=== PATIENT | female | born 1990 | race Caucasian/White ===

== ENCOUNTER 2016-09-25 13:46 | Emergency (ER) | payer OTHER ==
[~2016-09-25] VITALS: Ht 157.5 cm; Wt 122.5 kg
[2016-09-25 13:58] VITALS: BP 130/76
[2016-09-25 14:44] LABS: BASOPHILS # (AUTO) 0.7 K/uL (0.00-0.22); EOSINOPHILS # (AUTO) 0.4 K/uL (0-0.4); EOSINOPHILS % (AUTO) 2.9 % (0.0-4.0); HEMATOCRIT 42.6 % (36-48); HEMOGLOBIN 14.4 g/dL (12.0-16.0); LYMPHOCYTES # (AUTO) 2.3 K/uL (2.5-16.5); LYMPHOCYTES % (AUTO) 16.8 % (20.5-51.1); MEAN CORPUSCULAR HEMOGLOBIN 30 pg (27-31); MEAN CORPUSCULAR HGB CONC 34 g/dL (33-37); MEAN CORPUSCULAR VOLUME 89 fL (80-94); MONOCYTES # (AUTO) 0.4 K/uL (0.8-1.0); MONOCYTES % (AUTO) 3.2 % (1.7-9.3); NEUTROPHILS # (AUTO) 9.8 K/uL (1.8-7.7); PLATELET COUNT (AUTO) 286 K/uL (140-450); RED BLOOD CELL COUNT(AUTO) 4.81 MIL/uL (4.20-5.40); RED CELL DISTRIBUTION WIDTH 12.6 % (11.6-13.7); WHITE BLOOD COUNT (AUTO) 13.6 K/uL (4.8-10.8)
[2016-09-25 14:57] LABS: ANION GAP 13.3 (8-16); CALCIUM 8.4 mg/dL (8.5-10.1); CARBON DIOXIDE 27.1 mmol/L (21-32); CREATININE 0.8 mg/dL (0.6-1.3); POTASSIUM 3.4 mmol/L (3.5-5.1)
[2016-09-25 15:03] LABS: ALBUMIN 3.4 g/dL (3.4-5.0); TOTAL BILIRUBIN 0.4 mg/dL (0.0-1.0); TOTAL PROTEIN, SERUM 8.1 g/dL (6.4-8.2)
--- NOTE | 2016-09-25 18:00 | NUR ---
NO ANSWER IN ER LOBBY
== END 2016-09-25 18:00 | disposition left against medical advice (07) ==
LOC: MED 13:46
DX: R42 Dizziness and giddiness (principal); Z53.21 Procedure and treatment not carried out due to patient leaving prior to being seen by health care provider
CPT/HCPCS: 36415; 70450; 80053; 84484; 85025; 99281

== ENCOUNTER 2017-11-21 19:25 | Emergency (ER) | payer OTHER ==
[~2017-11-21] VITALS: Ht 160 cm; Wt 117.5 kg
[2017-11-21 19:28] VITALS: BP 121/72
--- NOTE | 2017-11-21 19:31 | NUR ---
PT RETURNED TO LOBBY IN STABLE CONDITION
--- NOTE | 2017-11-21 19:48 | NUR ---
PT AMBULATED TO BED 10
--- NOTE | 2017-11-21 20:23 | NUR ---
PT PRESENTS TO ED WITH C/O RT 4TH FINGER PAIN SINCE WEDNESDAY. PT STATES RIPPED OFF HER NAIL LAST WEDNESDAY. UNABLE TO RECALL TATANUS VACCINE. AAO X4, AMBULATORY WITH STEADY GAIT. RT 4TH FINGER PEELED NAIL, REDNESS WITH MILD DISCHARGE. PAIN /. VSS, ER MD MADE AWARE OF PT STATUS, WILL CONTINUE TO MONITOR.
[2017-11-21] MEDS ORDERED: IBUPROFEN 600 MG TAB PO ONE (20:30)
[2017-11-21] MEDS ORDERED: BACITRACIN OINT 500 UNITS/GM PKT TP ONE (20:45)
[2017-11-21 20:55] VITALS: BP 120/80
--- NOTE | 2017-11-21 20:56 | NUR ---
Patient discharged with v/s stable. Written and verbal after care instructions given and explained. Patient alert, oriented and verbalized understanding of instructions. Ambulatory with steady gait. All questions addressed prior to discharge. ID band removed. Patient advised to follow up with PMD. Rx of BACITRACIN, NAPROSYN given. Patient educated on indication of medication including possible reaction and side effects. Opportunity to ask questions provided and answered.
== END 2017-11-21 20:55 | disposition home or self-care (01) ==
LOC: MED 19:25
DX: S61.302A Unspecified open wound of right middle finger with damage to nail, initial encounter (principal); X58.XXXA Exposure to other specified factors, initial encounter; Y93.89 Activity, other specified; Y92.89 Other specified places as the place of occurrence of the external cause; Y99.8 Other external cause status
CPT/HCPCS: 99283

== ENCOUNTER 2022-01-08 17:44 | Emergency (ER) | payer SELFPAY ==
[~2022-01-08] VITALS: Ht 154.9 cm; Wt 127.5 kg
[2022-01-08 18:53] VITALS: BP 150/110
[2022-01-08] MEDS ORDERED: cefTRIAXone 1,000 MG in LIDOCAINE MPF 1% 2.1 ML IM ONE (19:10)
[2022-01-08] MEDS ORDERED: MORPHINE SULFATE 4 MG/ML SYR IM ONE (19:10)
[2022-01-08] MEDS ORDERED: ONDANSETRON 4 MG ODT PO ONE (19:10)
[2022-01-08] MEDS ORDERED: LIDOCAINE MPF 2% 100 MG/5 ML VIAL INJ ONE (19:25)
--- NOTE | 2022-01-08 19:37 | NUR ---
PT TAKEN TO BED 6
--- NOTE | 2022-01-08 19:37 | NUR ---
PA AT BEDSIDE
[2022-01-08] MEDS ORDERED: cefTRIAXone 1,000 MG VIAL ONE (19:39)
[2022-01-08] MEDS ORDERED: LIDOCAINE MPF 1% 5 ML ONE (19:40)
[2022-01-08 19:43] LABS: BASOPHILS # (AUTO) 0.1 K/uL (0.00-0.22); BASOPHILS % (AUTO) 0.6 % (0.0-2.0); EOSINOPHILS # (AUTO) 0.4 K/uL (0-0.4); EOSINOPHILS % (AUTO) 2.6 % (0.0-4.0); HEMATOCRIT 36.7 % (36-48); HEMOGLOBIN 12.6 g/dL (12.0-16.0); LYMPHOCYTES % (AUTO) 12.8 % (20.5-51.1); MEAN CORPUSCULAR HEMOGLOBIN 30 pg (27-31); MEAN CORPUSCULAR HGB CONC 34 g/dL (33-37); MEAN CORPUSCULAR VOLUME 87.5 fL (80-94); MONOCYTES # (AUTO) 0.7 K/uL (0.8-1.0); MONOCYTES % (AUTO) 4.4 % (1.7-9.3); NEUTROPHILS # (AUTO) 12.3 K/uL (1.8-7.7); NEUTROPHILS % (AUTO) 79.6 % (42.2-75.2); PLATELET COUNT (AUTO) 273 K/uL (140-450); RED BLOOD CELL COUNT(AUTO) 4.19 MIL/uL (4.20-5.40); RED CELL DISTRIBUTION WIDTH 14.6 % (11.6-13.7); WHITE BLOOD COUNT (AUTO) 15.4 K/uL (4.8-10.8)
[2022-01-08] MEDS ORDERED: LIDOCAINE MPF 1% 10 MG/ML VIAL INJ ONE (19:45)
[2022-01-08] MEDS ORDERED: DOXY100T9 PO (19:49)
[2022-01-08 20:00] LABS: CARBON DIOXIDE 25.9 mmol/L (21-32); CREATININE 0.7 mg/dL (0.6-1.3)
--- NOTE | 2022-01-08 20:09 | NUR ---
Drainage and packing being performed by PA. PA verbally informed patient to return in two days. Patient verbalized understanding, no further questions from patient.
--- NOTE | 2022-01-08 20:17 | NUR ---
Patient resting comfortbaly in bed, A/Ox4, chest rise and fall symmetrical, no s/s of distress.
[2022-01-08] MEDS ORDERED: KETOROLAC 30 MG/ML VIAL IM ONE (20:20)
[2022-01-08 20:23] LABS: POTASSIUM 3.9 mmol/L (3.5-5.1)
[2022-01-08 21:02] VITALS: BP 118/64
== END 2022-01-08 21:03 | disposition home or self-care (01) ==
LOC: MED 17:44
DX: L02.411 Cutaneous abscess of right axilla (principal); R03.0 Elevated blood-pressure reading, without diagnosis of hypertension; D72.829 Elevated white blood cell count, unspecified; Z79.899 Other long term (current) drug therapy
CPT/HCPCS: 10060; 36415; 80048; 85025; 96372; 99284; J0696; J1885; J2001; J2270; Q0162

== ENCOUNTER 2022-01-10 13:03 | Emergency (ER) | payer SELFPAY ==
[~2022-01-10] VITALS: Ht 154.9 cm; Wt 127.0 kg
[~2022-01-10 13:03] MED LIST: DOXY100T9 PO
[2022-01-10 13:07] VITALS: BP 130/76
--- NOTE | 2022-01-10 14:09 | NUR ---
PT AMB TO BED 8.
[2022-01-10 14:46] VITALS: BP 125/78
--- NOTE | 2022-01-10 14:48 | NUR ---
DPatient discharged with v/s stable. Written and verbal after care instructions given and explained. Patient verbalized understanding. Ambulatory with steady gait. All questions addressed prior to discharge. Advised to follow up with PMD.
== END 2022-01-10 14:48 | disposition home or self-care (01) ==
LOC: MED 13:03
DX: Z48.00 Encounter for change or removal of nonsurgical wound dressing (principal)
CPT/HCPCS: 99281

== ENCOUNTER 2023-01-19 22:58 | Emergency (ER) | payer OTHER ==
[~2023-01-19] VITALS: Ht 157.5 cm; Wt 127.0 kg
[2023-01-19 23:48] VITALS: BP 153/92; PULSE 76; RESP 16; TEMP 97.1; O2SAT 99
[2023-01-20] MEDS ORDERED: CIPR7.5S OT (01:30)
[2023-01-20 01:37] VITALS: BP 153/92; PULSE 76; RESP 16; TEMP 97.1; O2SAT 99
== END 2023-01-20 01:37 | disposition home or self-care (01) ==
LOC: MED 22:58
DX: T16.2XXA Foreign body in left ear, initial encounter (principal); H66.92 Otitis media, unspecified, left ear; Z79.2 Long term (current) use of antibiotics; X58.XXXA Exposure to other specified factors, initial encounter; Y92.89 Other specified places as the place of occurrence of the external cause; Y93.89 Activity, other specified; Y99.8 Other external cause status
CPT/HCPCS: 99284